=== PATIENT | male | born 1950 | race Caucasian/White ===

== ENCOUNTER → 2024-06-15 15:13 | Outpatient (REF) | payer MEDICARE, OTHER, SELFPAY | LOC: RAD 15:13 | PROVIDERS: ATTENDING PHYSICIAN Family Medicine | DX: M25.531 Pain in right wrist (principal) | CPT/HCPCS: 73110; 73130 ==

== ENCOUNTER → 2024-09-07 15:41 | Outpatient (REF) | payer MEDICARE, OTHER, SELFPAY ==
[2024-09-07 16:19] LABS: Blood Urea Nitrogen 13 mg/dl (9-20)
== END ==
LOC: REG 15:41
PROVIDERS: ATTENDING PHYSICIAN Surgery
DX: R10.32 Left lower quadrant pain (principal)
CPT/HCPCS: 36415; 82565; 84520

== ENCOUNTER → 2024-09-08 12:42 | Outpatient (REF) | payer MEDICARE, OTHER, SELFPAY | LOC: RAD 12:42 | PROVIDERS: ATTENDING PHYSICIAN Surgery; FAMILY PHYSICIAN Family Medicine | DX: K57.32 Diverticulitis of large intestine without perforation or abscess without bleeding (principal); R10.32 Left lower quadrant pain | CPT/HCPCS: 74176 ==

== ENCOUNTER 2024-12-14 12:28 | Emergency (ER) | payer MEDICARE, OTHER, SELFPAY ==
[2024-12-14 12:33] VITALS: BP 159/90
--- NOTE | 2024-12-14 13:07 | ED.GENMED ---
History of Present Illness
General
Chief Complaint: Nose Bleed
Source: patient
Exam Limitations: none
Time Seen by Provider: 12/14/24 12:53
History of Present Illness
History of Present Illness:
74-year-old male presents with right sided nosebleed that started about an hour prior to arrival. He was not able to get it stop bleeding. He had been on Eliquis but he stopped it 5 days ago for an elective cholecystectomy and umbilical hernia
repair tomorrow. He was seen by ENT 2 days ago for nosebleeds and at that time it was not bleeding and they opted for Vaseline and saline rinses. No known injury. He denies lightheadedness or shortness of breath. No other complaint
Phy Exam
Physical Exam
Physical Exam:
General: Well-appearing male no acute respiratory distress
HEENT: Normocephalic atraumatic
Right nasal cavity examined. There is an area over the medial wall anteriorly that looks like a site of prior bleeding. There currently is a clot on it. A larger clot was evacuated from the nose with suction.
Course
Vital Signs
Initial and Last Documented VS:
Initial Vital Signs
Temp Pulse Resp BP Pulse Ox
98.5 F 68 16 159/90 98
12/14/24 12:33 12/14/24 12:33 12/14/24 12:33 12/14/24 12:33 12/14/24 12:33
Last Documented Vital Signs
Temp Pulse Resp BP Pulse Ox
98.5 F 68 16 159/90 98
12/14/24 12:33 12/14/24 12:33 12/14/24 12:33 12/14/24 12:33 12/14/24 12:33
MDM/Problems Addressed
Differential Diagnosis Includes:
Acute anterior right sided epistaxis.
Piece of cotton soaked with lidocaine and epinephrine was placed into the right side of the nose
*Critical Care Note
Total Time (30-74mins, 75-104mins- exclusive of procedures): Not Applicable
Update Note
Update Note:
Patient reexamined multiple times. After the cotton was placed in the nose it was removed and no further bleeding was visualized. The nose was cauterized using silver nitrate. The patient was observed for a period time after this. There was no
further bleeding. He was ambulating bending over without any further blood. Stable for discharge follow-up with ENT
ED Attending Note
-
Portions of this chart may have been created with voice recognition software.� Occasional wrong word or��sound alike� substitutions may have occurred due to the inherent limitations of voice recognition software.
Discharge Plan
Departure
Patient Disposition: Home (Routine Discharge)
Date of Disposition: 12/14/24
Time of Disposition: 14:08
Patient with high blood pressure during this ER visit?: No
Discharge Problem:
Acute anterior epistaxis
Referrals:
Eulogio Reed, DO [Family Provider] -
Activity Restrictions/Additional Instructions:
Continue with Vaseline. Follow-up with ENT. Return if needed otherwise
Interventions
Interventions:
*Risk Screen - Suicide Last Done: 12/14/24 12:33
*Neglect/Abuse Screening Last Done: 12/14/24 12:33
Discharge Date and Time
Print Language: BULGARIAN
[2024-12-14 14:47] VITALS: BP 145/74
== END 2024-12-14 14:49 | disposition home or self-care (01) ==
LOC: EMR 12:28
PROVIDERS: EMERGENCY PHYSICIAN Emergency Medicine; FAMILY PHYSICIAN Family Medicine
DX: R04.0 Epistaxis (principal)
CPT/HCPCS: 99282; 30901